=== PATIENT | female | born 1940 | race Caucasian/White ===

== ENCOUNTER 2020-01-05 16:32 | Emergency (ER) | payer OTHER ==
[~2020-01-05] VITALS: Ht 149.9 cm; Wt 45.4 kg
[2020-01-05] MEDS ORDERED: LOSARTAN POTASS25 MG PO (17:08)
[2020-01-05] MEDS ORDERED: SINEMET 25-1001 EACH PO (17:09)
[2020-01-05] MEDS ORDERED: ZOCOR20 MG PO (17:09)
[2020-01-05] MEDS ORDERED: LEVOTHYROXINE25 MCG PO (17:09)
[2020-01-05] MEDS ORDERED: PLAVIX75 MG PO (17:09)
== END 2020-01-05 21:53 | disposition home or self-care (01) ==
LOC: ER 16:32
DX: R42 Dizziness and giddiness (principal)